=== PATIENT | female | born 1950 | race Caucasian/White ===

== ENCOUNTER 2020-09-29 12:19 | Outpatient (REF) | payer MEDICARE, SELFPAY ==
--- NOTE | 2020-09-29 | MM_ITS ---
EXAMINATION: MM SCREENING DIGITAL BREAST TOMOSYNTHESIS, BILATERAL CLINICAL INFORMATION: Screening. Asymptomatic. The lifetime risk of breast cancer based on the Tyrer-Cuzick Model is 2%. COMPARISON: Mammography: 08/02/2019, 08/01/2018, 07/27/2017 TECHNIQUE: Digital breast tomosynthesis is performed in both the craniocaudal and mediolateral oblique views along with computer-aided detection (CAD). Synthesized 2D images are generated from the tomosynthesis. FINDINGS: There are scattered areas of fibroglandular density (ACR BI-RADS breast composition Category b). There are no significant masses, abnormal calcifications, or other abnormalities. Parenchymal pattern is similar to prior studies. No significant changes. MM/MM tomosynthesis screening BI IMPRESSION: No mammographic evidence of malignancy. ASSESSMENT: BI-RADS 1: Negative RECOMMENDATION: Routine annual mammography screening. This patient's information was entered into a reminder system with a target due date for their next mammogram.
== END 2020-09-29 12:20 | disposition home or self-care (01) ==
LOC: HO.MAMMO 12:19
PROVIDERS: PCP Family Medicine; Visit Provider Family Medicine
DX: Z12.31 Encounter for screening mammogram for malignant neoplasm of breast (principal)
CPT/HCPCS: 77063; 77067

== ENCOUNTER 2021-09-24 12:42 | Outpatient (REF) | payer MEDICARE, SELFPAY ==
--- NOTE | ~2021-09-24 | MM_ITS ---
EXAMINATION: BONE DENSITOMETRY CLINICAL INDICATION: Menopause. COMPARISON: Baseline BD dated 10/26/2018. TECHNIQUE: Using a Hightower DXA System (software version: 13.1) manufactured by [employer], dual-energy x-ray absorptiometry was performed of the lumbar spine and left hip. The images are of good technical quality. Summary results are attached. FINDINGS: AP SPINE L1-L4: Current: BMD 1.116 g/cm2, Z-score 0.8, T-score -0.5, normal, 1.2% decrease from baseline (<5% change is not significant). Baseline: BMD 1.129 g/cm2. LEFT FEMUR, NECK: Current: BMD 0.878 g/cm2, Z-score 0.4, T-score -1.1, osteopenia. Baseline: BMD 0.862 g/cm2. LEFT FEMUR, TOTAL: Current: BMD 1.002 g/cm2, Z-score 1.2, T-score 0.0, normal, 4.5% increase from baseline (<5% change is not significant). Baseline: BMD 0.959 g/cm2. IDENTIFIED RISK FACTORS: Rheumatoid arthritis, menopause. HISTORY OF FRACTURE: None listed. MEDICATIONS: Calcium supplements or multivitamin, vitamin D. MM/XR DEXA axial skeleton IMPRESSION: 1. DIAGNOSIS: Osteopenia based on the lowest T-score value of -1.1 in the femoral neck applying World Health Organization criteria. 2. 10-YEAR FRACTURE RISK PREDICTION, FRAX: Major osteoporotic fracture (clinical spine, forearm, hip or shoulder) 6.7%. Hip fracture 0.9%. 3. Treatment Recommendations: NOF guidelines recommend consideration for treatment in postmenopausal women and men age 50 and older presenting with the following: -A hip or vertebral (clinical or morphometric) fracture. -T-score less than or equal to -2.5 at the femoral neck or spine after appropriate evaluation to exclude secondary causes. -Low bone mass at the hip or spine and a 10-year fracture probability by FRAX of greater than or equal to 3% for hip fracture or greater than or equal to 20% for major osteoporotic fracture based on the [place] adapted WHO algorithm. 4. Other Recommendations: All treatment decisions require clinical judgment and consideration of individual patient factors, including patient preferences, comorbidities, previous drug use, risk factors not captured in the FRAX model (e.g. frailty, falls, vitamin D deficiency, increased bone turnover, interval significant decline in bone density) and possible under or overestimation of fracture risk by FRAX. Additional medical evaluation for secondary cause of low bone mineral density may be appropriate. FUTURE SCAN RECOMMENDATION: People with diagnosed cases of osteoporosis or at high risk for fracture should have regular bone mineral density tests. For patients eligible for Medicare, routine testing is allowed once every 2 years. The testing frequency can be increased to one year for patients who have rapidly progressing disease, those who are receiving or discontinuing medical therapy to restore bone mass, or have additional risk factors.
== END 2021-09-24 12:43 | disposition home or self-care (01) ==
LOC: HO.MAMMO 12:42
PROVIDERS: PCP Internal Medicine; Visit Provider Internal Medicine
DX: Z13.820 Encounter for screening for osteoporosis (principal); M85.80 Other specified disorders of bone density and structure, unspecified site; Z78.0 Asymptomatic menopausal state; M05.9 Rheumatoid arthritis with rheumatoid factor, unspecified; Z79.899 Other long term (current) drug therapy
CPT/HCPCS: 77080

== ENCOUNTER 2021-09-30 12:50 | Outpatient (REF) | payer MEDICARE, SELFPAY ==
--- NOTE | ~2021-09-30 | MM_ITS ---
EXAMINATION: MM SCREENING DIGITAL BREAST TOMOSYNTHESIS, BILATERAL CLINICAL INFORMATION: Screening. Asymptomatic. The lifetime risk of breast cancer based on the Tyrer-Cuzick Model is 2.4%. COMPARISON: Mammography: September 29, 2020 and studies dating back to April 24, 2014 TECHNIQUE: Digital breast tomosynthesis is performed in both the craniocaudal and mediolateral oblique views along with computer-aided detection (CAD). Synthesized 2D images are generated from the tomosynthesis. FINDINGS: There are scattered areas of fibroglandular density (ACR BI-RADS breast composition Category b). There are no significant masses, abnormal calcifications, or other abnormalities. MM/MM tomosynthesis screening BI IMPRESSION: There are no significant changes from prior study. ASSESSMENT: BI-RADS 1: Negative RECOMMENDATION: Routine annual mammography screening. This patient's information was entered into a reminder system with a target due date for their next mammogram.
== END 2021-09-30 12:51 | disposition home or self-care (01) ==
LOC: HO.MAMMO 12:50
PROVIDERS: PCP Internal Medicine; Visit Provider Internal Medicine
DX: Z12.31 Encounter for screening mammogram for malignant neoplasm of breast (principal)
CPT/HCPCS: 77063; 77067

== ENCOUNTER 2022-10-06 12:30 | Outpatient (REF) | payer OTHER, SELFPAY ==
--- NOTE | ~2022-10-06 | MM_ITS ---
EXAMINATION: MM SCREENING DIGITAL BREAST TOMOSYNTHESIS, BILATERAL CLINICAL INFORMATION: Screening. Asymptomatic. The lifetime risk of breast cancer based on the Tyrer-Cuzick Model is 3%. COMPARISON: Mammography: September 30, 2021 and studies dating back to January 01, 2016 TECHNIQUE: Digital breast tomosynthesis is performed in both the craniocaudal and mediolateral oblique views along with computer-aided detection (CAD). Synthesized 2D images are generated from the tomosynthesis. FINDINGS: There are scattered areas of fibroglandular density (ACR BI-RADS breast composition Category b). There are no significant masses, abnormal calcifications, or other abnormalities. MM/MM tomosynthesis screening BI IMPRESSION: No significant changes from prior exam. ASSESSMENT: BI-RADS 1: Negative RECOMMENDATION: Routine annual mammography screening.
== END 2022-10-06 12:31 | disposition home or self-care (01) ==
LOC: HO.MAMMO 12:30
PROVIDERS: PCP Internal Medicine; Visit Provider Internal Medicine
DX: Z12.31 Encounter for screening mammogram for malignant neoplasm of breast (principal)
CPT/HCPCS: 77063; 77067

== ENCOUNTER 2023-10-10 10:32 | Outpatient (REF) | payer OTHER, SELFPAY | END 2023-10-10 10:33 | disposition home or self-care (01) | LOC: HO.MAMMO 10:32 | PROVIDERS: PCP Internal Medicine; Visit Provider Internal Medicine | DX: Z12.31 Encounter for screening mammogram for malignant neoplasm of breast (principal) | CPT/HCPCS: 77063; 77067 ==

== ENCOUNTER → 2023-10-10 10:45 | Outpatient (BNV) | payer OTHER, SELFPAY | PROVIDERS: PCP Internal Medicine; Visit Provider Radiology Diagnostic Radiology | DX: Z12.31 Encounter for screening mammogram for malignant neoplasm of breast (principal) | CPT/HCPCS: 77063; 77067 ==

== ENCOUNTER 2024-03-05 08:53 | Outpatient (REF) | payer OTHER, SELFPAY ==
[2024-03-05 15:06] LABS: Alanine Aminotransferase 11 U/L (0-31); Albumin Level 4.3 g/dL (3.5-5.0); Alkaline Phosphatase 71 U/L (39-117); Anion Gap 16 (12-20); Aspartate Amino Transferase 18 U/L (5-31); Bilirubin Total 0.6 mg/dL (0.0-1.0); Blood Urea Nitrogen 14 mg/dL (9-16); Carbon Dioxide 27 mmol/L (22-29); Chloride 103 mmol/L (96-108); Cholesterol 176 mg/dL (<200); Estimated Glomerular Filt Rate > 60; Glucose Random 86 mg/dL (60-115); HDL Cholesterol 72 mg/dL (>40); LDL Cholesterol Calculated 78 mg/dL (<100); Potassium 4.2 mmol/L (3.3-5.1); Sodium 142 mmol/L (135-145); Total Protein 8.3 g/dL (6.5-8.0); Triglycerides 131 mg/dL (<150)
== END 2024-03-05 08:54 | disposition home or self-care (01) ==
LOC: HO.CHCLDS 08:53
PROVIDERS: Visit Provider Internal Medicine
DX: I10 Essential (primary) hypertension (principal)
CPT/HCPCS: 36415; 80053; 80061

== ENCOUNTER 2024-10-14 12:03 | Outpatient (REF) | payer OTHER, SELFPAY | END 2024-10-14 12:04 | disposition home or self-care (01) | LOC: HO.MAMMO 12:03 | PROVIDERS: PCP Internal Medicine; Visit Provider Internal Medicine | DX: Z12.31 Encounter for screening mammogram for malignant neoplasm of breast (principal) | CPT/HCPCS: 77063; 77067 ==

== ENCOUNTER → 2024-10-14 12:15 | Outpatient (BNV) | payer OTHER, SELFPAY | PROVIDERS: PCP Internal Medicine; Visit Provider Internal Medicine | DX: Z12.31 Encounter for screening mammogram for malignant neoplasm of breast (principal) | CPT/HCPCS: 77063; 77067 ==

== ENCOUNTER 2025-05-27 10:44 | Outpatient (REF) | payer OTHER, SELFPAY ==
--- OUTSIDE RECORDS SUMMARY | 2025-05-27 11:52 | XMS_ITS | Encounter Summary ---
Author Organization [employer] Address [address] [facility] 7 [place] [address] Care Team Providers Care Head Of Operation And Logistics Name Role Phone Romel Winn MD Primary Care Prov ider Reason for Visit * Reason Comments Med Refill Encounter Details Date Type Department Care Team (Late st Contact Info) Description 03/02/2024 Refill [facility] MED & PEDS [address] [place], [place] [phone] Romel Winn MD [address] [place] [address] Social History Tobacco Use Types Packs/Day Years Used Date Smoking Tobacco: Never Assessed Depression Answer Date Recorded Patient Health Questionnaire-9 Score 0 03/04/2024 Patient Health Questionnaire-9 Score 0 03/04/2024 Last PHQ-9: Questionnaire Data Not on file 0 03/04/2024 Housing Stability Answer Date Recorded What is your housing situation today? I have zee ware 03/04/[address] you li ve. Do you have problems with any of the following? None of the above 03/04/2024 Food Insecurity Answer Date Recorded Within the past 12 months, y ou worried that your food would run out before you got money to buy more: Never True 03/04/2024 Within the past 12 months,th e food you bought just didn't last and you didn't have enough money to get more: Never True Transportation Answer Date Recorded In the past 12 months, has l ack of transportation kept you from medical appts, meetings, work or from getting things needed for daily living? No 03/04/2024 Utilities Answer Date Recorded In the past 12 months, has t he electric, gas, oil or water company threatened to shut off services in your home? No 03/04/2024 Depression Answer Date Recorded Patient Health Questionnaire-2 Score 0 03/04/2024 Comments Unknown Sex and Gender Information Value Date Recorded Sex Assigned at Female 08/15/2022 10:28 AM EDT Legal Sex Female 10:28 AM EDT Gender Identity Female 08/15/2022 10:28 AM EDT Sexual Orientation Choose not to disclose 2021 10:28 AM EDT documented as of this encounter Functional Status * Over the past 2 weeks, how often have you been bothered by any of the following problems? Question Answer Date of Assessment Author Patient Health Questionnaire-2 Score 0 02/14 3:12 PM Aliyah Sol MA * Over the past 2 weeks, how often have you been bothered by any of the following problems? Question Answer Date of Assessment Author Little interest or pleasure in doing things Not at all 03/04/2024 3:12 PM Aliyah Sol MA Feeling down, depressed, or hopeless Not at all 03/04/2024 3:12 PM Aliyah Sol MA Trouble falling or staying a sleep, or sleeping too much Not at all 03/04/2024 3:12 PM Aliyah Sol MA Feeling tired or having mayank le energy Not at all 03/04/2024 3:12 PM Aliyah Sol MA Poor appetite or overeating Not at all 03/04/2024 3: 12 PM Aliyah Sol MA Feeling bad about yourself - or that you are a failure or have let yourself or your family down Not at all 03/04/2024 3:12 PM Wendy Sol MA Trouble concentrating on thi ngs, such as reading the newspaper or watching television Not at all 03/04/2024 3:12 PM Aliyah Sol MA Moving or speaking so slowly that other people could have noticed? Or the opposite - being so fidgety or restless that you have been moving around a lot more than usual. Not at all 03/04/2024 3:12 PM Aliyah Sol MA Thoughts that you would be b demetrice off or hurting yourself in some way Not at all 03/04/2024 3:12 PM EDT Aliyah Dill MA Patient Health Questionnaire -9 Score 0 03/04/2024 3:12 PM EDT Aliyah Dill MA documented as of this encounter Plan of Treatment Not on file documented as of this encounter Visit Diagnoses Not on filedocumented in this encounter Care Teams Head Of Operation And Logistics Relationship Specialty Start Date End Date Romel Winn MD [address] [place] [id number] PCP - General Internal Medicine 03/15/20 documented as of this encounter
[2025-05-27 14:04] LABS: MANUAL DIFF FLAG NO
[2025-05-27 14:19] LABS: Hematocrit 42.4 % (37.0-47.0); Hemoglobin 13.5 g/dl (12.0-16.0); Imm Gran Abs Auto 0.04 X10*3/uL (0.00-0.03); Imm Gran Pct Auto 0.4 % (0.0-0.4); Lymphocytes Absolute Auto 2.6 X10*3/uL (1.2-4.9); Mean Corpuscular HGB Conc 31.8 g/dl (31.0-35.0); Mean Corpuscular Hemoglobin 29.0 pg (27.0-33.0); Mean Corpuscular Volume 91.2 fL (80.0-98.0); NRBC Abs Auto 0.000 X10*3/uL (0.0-0.012); NRBC Pct Auto 0.0 /100WBC (0.0-0.2); Platelet Count 290 X10*3/uL (160-400); Red Blood Count 4.65 X10*6/uL (4.20-5.50); White Blood Count 9.0 X10*3/uL (4.8-10.8)
[2025-05-27 14:45] LABS: Alanine Aminotransferase 14 U/L (0-31); Albumin Level 4.4 g/dL (3.5-5.0); Alkaline Phosphatase 75 U/L (39-117); Anion Gap 15 (12-20); Aspartate Amino Transferase 26 U/L (5-31); Blood Urea Nitrogen 21 mg/dL (9-16); Calcium 10.2 mg/dL (8.4-10.2); Carbon Dioxide 30 mmol/L (22-29); Chloride 102 mmol/L (96-108); Cholesterol 189 mg/dL (<200); Estimated Glomerular Filt Rate 54; HDL Cholesterol 71 mg/dL (>40); Potassium 3.9 mmol/L (3.3-5.1); Sodium 143 mmol/L (135-145); Total Protein 8.1 g/dL (6.5-8.0); Triglycerides 147 mg/dL (<150)
[2025-05-27 14:53] LABS: Hemoglobin A1C 133.6207 umol/L; Total Hemoglobin (HGBA1C) 3608.1160 umol/L
[2025-05-27 15:54] LABS: Free T4 (Free Thyroxine) 1.10 ng/dL (0.71-1.85)
== END 2025-05-27 10:45 | disposition home or self-care (01) ==
LOC: HO.CHCLDS 10:44
PROVIDERS: Visit Provider Internal Medicine
DX: I10 Essential (primary) hypertension (principal)
CPT/HCPCS: 36415; 80053; 80061; 83036; 84439; 84443; 85025

== ENCOUNTER 2025-08-08 11:21 | Outpatient (REF) | payer OTHER, SELFPAY ==
--- NOTE | ~2025-08-08 | MM_ITS ---
EXAMINATION: DXA BONE DENSITY AXIAL HISTORY: menopause TECHNIQUE: [employer] Dual energy absorptiometry (DEXA) of the lumbar spine, total left hip, and femoral neck was performed. COMPARISON: Comparison is made with the prior examination dated 09/24/2021. FINDINGS: The bone mineral density of the lumbar spine is 1.123 g/cm2, corresponding to a T-score of -0.5, and a Z-score of 1.0. This is indicative of normal bone mineral density. This represents a BMD change of 0.6% compared to the prior exam. This is not statistically significant. The bone mineral density of the left total hip is 0.909 g/cm2, corresponding to a T-score of -0.8, and a Z-score of 0.7. This is indicative of normal bone mineral density. This represents a BMD change of -9.3% compared to the prior exam. This is statistically significant. The bone mineral density of the left femoral neck is 0.914 g/cm2, corresponding to a T-score of -0.9, and a Z-score of 0.8. This is indicative of normal bone mineral density. This represents a BMD change of 4.1% compared to the prior exam. FRACTURE RISK: The FRAX index suggests a ten year probability of major osteoporotic fracture of 5.2%, and of hip fracture 0.7%. MM/XR DEXA axial skeleton IMPRESSION: Based on bone mineral density, and according to World Health Organization (WHO) criteria, the diagnosis is consistent with normal bone mineral density. Statistically, 68% of repeat scans fall within 1 SD (+/- 0.010 g/cm2 for AP spine L1-L4) and 1 SD (+/- 0.012 g/cm2 for femur total) FRAX is a trademark of the [employer], a World Health Organization (WHO) Collaborating Center. Electronically signed by: Chandra Farnsworth MD 08/08/2025 11:49 AM EDT
--- OUTSIDE RECORDS SUMMARY | 2025-08-08 13:46 | XMS_ITS | Encounter Summary ---
Author Organization [employer] Address [address] [facility] 7 [place] [address] Care Team Providers Care Butadiene Convertor Operator Name Role Phone Romel Winn MD Primary Care Prov ider Reason for Visit * Reason Onset Date Comments Nurse Triage 03/04/2024 Encounter Details Date Type Department Care Team ([facility] st Contact Info) Description 03/04/2024 Telephone [facility] CHC MED & PEDS [address] [place], [place] [phone] Romel Winn MD [address] [place] [address] Nurse Triage Social History Tobacco Use Types Packs/Day Years [...] Health Questionnaire-2 Score 0 02/14 3:12 PM [facility] Aliyah Dill MA * Over the past 2 weeks, how often have you been bothered by any of the following problems? Question Answer Date of Assessment Author Little interest or pleasure in doing things Not at all 03/04/2024 3:12 PM RAD[facility] Aliyah Dill MA Feeling down, depressed, or hopeless Not at all 03/04/2024 3:12 PM RADAMEST Aliyah Dill MA Trouble falling or staying asleep, or sleeping too much Not at all 03/04/2024 3:12 PM RAD[facility] Wendy Dill MA Feeling tired or having mayank le energy Not at all 03/04/2024 3:12 PM RADAMEST Aliyah Dill MA Poor appetite or overeating Not at all 03/04/2024 3: 12 PM RADAME[employer] Aliyah Dill MA Feeling bad about yourself - or that you are a failure or have let yourself or your family down Not at all 03/04/2024 3:12 PM EDT Aliyah Perdomo MA Trouble concentrating on thi ngs, such as reading the newspaper or watching television Not at all 03/04/2024 3:12 PM RADAMEST Aliyah Dill MA Moving or speaking so slowly that other people could have noticed? Or the opposite - being so fidgety or restless that you have been moving around a lot more than usual. Not at all 03/04/2024 3:12 PM EDT Aliyah Dill MA Thoughts that you would be b demetrice off or hurting yourself in some way Not at all 03/04/2024 3:12 PM EDT Aliyah Dill MA Patient Health Questionnaire -9 Score 0 03/04/2024 3:12 PM EDT Aliyah Dill MA documented as of this encounter Miscellaneous Notes * Telephone Encounter - [place] RN - 03/04/2024 10:50 AM EDT Call returned to Nilsa Watson to triage below. Reports having pain on joints due to arthritis. Per pt this has been ongoing 2-3 weeks. No swelling, redness, rash or bruising. Pt denies any difficulty with range of motion. Pt using OTC Tylenol with mild relief. Pt advised of disposition, agrees totelehealth with PCP. Reviewed home care advise, ER precautions and reasons to call back. Protocol Used: Arm Pain (Adult) Protocol-Based Disposition: See in Office or Video Visit within 3 Days Future Appointments Date Time Provider Department Center 03/04/2024 3:15 PM Romel Murcia MD [facility] 03/18/2024 8:45 AM Romel Murcia MD [facility] Video visit offered and caller accepted Positive Triage Question: * Moderate pain (e.g., interferes with normal activities) and present > 3 days * All higher-acuity triage questions were negative Care Advice Discussed: * Pain Medicines * Reasons To Call Back - Signs of infection occur (e.g., spreading redness, warmth, fever) - You become worse * Telephone Encounter - Nash Cueto - 03/04/2024 9:34 AM EDT Symptoms: Body Aches, Pain - Severe Outcome: Schedule an urgent appointment (within 1 hour) or talk to a nurse or provider soon Reason: Caller denied all higher acuity questions The caller accepted this outcome Please contact pt @ [phone] documented in this encounter Plan of Treatment Upcoming Encounters Date Type Department Care Team (Late st Contact Info) Description 09/01/2025 8:45 AM EST Office Visit [facility] CH[facility] MED & PEDS [address] [place] [address] Romel Winn MD [address] [place] [address] documented as of this encounter Visit Diagnoses Not on filedocumented in this encounter Additional Health Concerns Assessment Noted Time PHQ-9 Depression Total Score: 0 03/04/20 24 3:12 PM EDT documented as of this encounter Care Teams Butadiene Convertor Operator Relationship Specialty Start Date End Date Romel Winn MD [address] [place] [address] PCP - General Internal Medicine 03/15/20 documented as of this encounter
--- OUTSIDE RECORDS SUMMARY | 2025-08-08 13:46 | XMS_ITS | Encounter Summary ---
Author Organization [employer] Address [address] [place] [address] 7 [place] [address] Care Team Providers Care Commercial Stripper Name Role Phone Romel Winn MD Primary Care Prov ider Encounter Details Date Type Department Care Team (Late Contact Info) Description 01/30/2024 Orders Only [facility] MEDICINE [address] [place] [address] Provider, MD Emperatriz Social History Tobacco Use Types Packs/Day Years Used Date Smoking Tobacco: Never Assessed Comments Unknown Sex and Gender Information Value Date Recorded Sex Assigned at Female 08/15/2022 10:28 AM EDT Legal Sex Female 10:28 AM EDT Gender Identity Female 08/15/2022 10:28 AM EDT Sexual Orientation Choose not to disclose 2021 10:28 AM EDT documented as of this encounter Plan of Treatment Upcoming Encounters Date Type Department Care Team (Late st Contact Info) Description 09/01/2025 8:45 AM EST Office Visit [facility] CHC MED & PEDS [address] [place] [address] Romel Winn MD [address] [place] [address] documented as of this encounter Procedures Procedure Name Priority Date/Time Associated Diagnosis Comments HM COLONOSCOPY Routine 08/21/2015 11:25 AM EST documented in this encounter Results * Hm Colonoscopy (08/21/2015 11:25 AM EST) us Historical Provider HEALTH MAINTENANCE Final Result documented in this encounter Visit Diagnoses Not on filedocumented in this encounter Care Teams Commercial Stripper Relationship Specialty Start Date End Date De La FuenteRomel Cardenas MD [address] [place] [id number] PCP - General Internal Medicine 03/15/20 documented as of this encounter
--- OUTSIDE RECORDS SUMMARY | 2025-08-08 13:46 | XMS_ITS | Encounter Summary ---
Author Organization [employer] Address [address] [place] [address] [address] [place] [address] Care Team Providers Care Exotic Dancer Name Role Phone Romel Winn MD Primary Care Prov ider Encounter Details Date Type Department Care Team (Late st Contact Info) Description 08/22/2023 Orders Only [facility] MED & PEDS [address] [place] [address] aBrbara Kilgore LPN Social History Tobacco Use Types Packs/Day Years [...] Description 09/01/2025 8:45 AM EST Office Visit [facility] MED & PEDS [address] [place] [address] Romel Winn MD [address] [place] [address] documented as of this encounter Visit Diagnoses Not on filedocumented in this encounter Care Teams Exotic Dancer Relationship Specialty Start Date End Date Romel Winn MD [address] [place] [address] PCP - General Internal Medicine 03/15/20 documented as of this encounter
--- OUTSIDE RECORDS SUMMARY | 2025-08-08 13:46 | XMS_ITS | Encounter Summary ---
Author Organization [employer] Address [address] [facility] 7 [place] [address] Care Team Providers Care Dining Room Tables Set Up Attendant Name Role Phone Romel Winn MD Primary Care Prov ider Reason for Visit * Reason Comments Med Refill Encounter Details Date Type Department Care Team (Late st Contact Info) Description 03/02/2024 Refill [facility] CHC MED & PEDS [address] [place], [place] [phone] Romel Winn MD [address] [place] [address] Social History Tobacco Use Types Packs/Day Years [...] Description 09/01/2025 8:45 AM EST Office Visit [facility] MED & PEDS [address] [place] [address] Romel Winn MD [address] [place] [address] documented as of this encounter Visit Diagnoses Not on filedocumented in this encounter Care Teams Dining Room Tables Set Up Attendant Relationship Specialty Start Date End Date Romel Winn MD [address] [place] [address] PCP - General Internal Medicine 03/15/20 documented as of this encounter
--- OUTSIDE RECORDS SUMMARY | 2025-08-08 13:46 | XMS_ITS | Clinical Summary ---
Author Organization [email or web address] Address [address] [facility] [address] [place] [address] Care Team Providers Care Shredder Operator Name Role Phone Romel Winn MD Primary Care Prov ider Allergies No known active allergies Medications Diclofenac Sodium (Voltaren) 1 % gel Apply 2 g topically 3 times daily. 100 g 4 Active lisinopril-hydr oCHLOROthiazide 20-25 MG tablet TAKE 1 TABLET BY MOUTH EVERY DAY 90 tablet 1 4 Active cyclobenzaprine (Flexeril) 10 MG tabletIndicatio ns:Neck pain Take 1 tablet (10 mg) by mouth at bedtime for 10 days. 10 tablet 5 Active Diclofenac Sodium (Voltaren) 1 % gel Use topical BID 100 g 3 5 Active atorvastatin (Lipitor) 20 MG tablet TAKE 1 TABLET(20 MG) BY MOUTH DAILY 90 tablet 1 5 Active ibuprofen 800 MG tablet Take 1 tablet (800 mg) by mouth 2 times daily. 60 tablet 5 07/31/20 25 Active Problems Problem Noted Date Diagnosed Date Screening for colon cancer 03/18/2024 Assessment & Plan (03/18/2024 9:31 AM EDT): Will send cologuard risk vs benefits discussed Primary hypertension 03/18/2024 Assessment & Plan (05/23/2025 10:00 AM EDT): Controlled, keep low sodium diet and exercise as tolerated, keep bp log, follow up in 3 months Assessment & Plan (05/31/2024 10:36 PM EDT): Continue current medications, new labs will be ordered Assessment & Plan (03/18/2024 12:14 PM EDT): Slightly above target, reinforced low sodium diet and exercise as tolerated, keep lisinopril/hydrochlorothiazide, keep bp log target <140/90 Dyslipidemia 08/27/2018 Assessment & Plan (05/23/2025 10:01 AM EDT): New labs will be ordered for guidance of therapy, encouraged to keep a low cholesterol diet, eat more vegetables and fish Assessment & Plan (05/31/2024 10:36 PM EDT): New labs will be ordered for guidance Assessment & Plan (03/18/2024 9:21 AM EDT): Controlled with current therapy, continue diet/exercise recommendations, follow up in 6 months Encounters Date Type Department Care Team Description 07/02/2025 Refill [facility] [address] [place] [address] Romel Winn MD 07/01/2025 9:30 AM EDT Office Visit [facility] [address] [place] [address] Marisela Cazares MD Neck pain (Primary Dx); Primary hypertension 07/01/2025 Travel 06/30/2025 Telephone [facility] [address] [place] [address] Romel Winn MD Nurse Triage 05/27/2025 Orders Only [facility] [address] [place] [address] Romel Winn MD Primary hypertension (Primary Dx) 05/23/2025 9:45 AM EDT Office Visit [facility] [address] [place] [address] Romel Winn MD Menopause (Primary Dx); Dietary counseling; Exercise counseling; Primary hypertension; Dyslipidemia 05/23/2025 Travel from Last 3 Months Immunizations Immunization Administration Dates Next Due Influenza High-dose Quadriva lent Preservative Free 09/18/2023,08/12/2022,08/23/2021,09/13 Influenza injectable quadriv alent IIV4 with preservative 11/09/2017,07/24/2015 Influenza, High Dose Seasona l, Preservative Free 11/08/2019,07/06/2018 Influenza, Split (incl. raman fied surface antigen) 01/23/2014 Pneumococcal Conjugate PCV 13 11/13/2015 Pneumococcal Polysaccharide PPSV23 11/11/2016 RSV Bivalent 09/18/2023 Tdap 06/13/2016,01/23/2014 Zoster, Recombinant 10/21/2022,08/18/2022 Zoster, live 12/11/2017 Social History Tobacco Use Types Packs/Day Years Used Date Smoking Tobacco: Never Passive Smoke Exposure: Never Smokeless Tobacco: Never Tobacco Cessation:Counseling Given: Not Answered Alcohol Answer Date Recorded How often do you have a drink containing alcohol ? 1 05/23/2025 How many drinks containing a lcohol do you have on a typical day when you are drinking? 0 05/23/2025 How often do you have six or more drinks on one occasion? 0 05/23/2025 Depression Answer Date Recorded Patient Health Questionnaire-9 Score 4 05/23/2025 Patient Health Questionnaire-9 Score 4 05/23/2025 Last PHQ-9: Questionnaire Data Not on file 0 05/23/2025 Housing Stability Answer Date Recorded What is your housing situation today? I have zee ware 05/23/[address] you li ve. Do you have problems with any of the following? None of the above 05/23/2025 Food Insecurity Answer Date Recorded Within the past 12 months, y ou worried that your food would run out before you got money to buy more: Never True 2024 Within the past 12 months,th e food you bought just didn't last and you didn't have enough money to get more: Sometimes True 05/23/2025 Transportation Answer Date Recorded In the past 12 months, has l ack of transportation kept you from medical appts, meetings, work or from getting things needed for daily living? No 05/23/2025 Utilities Answer Date Recorded In the past 12 months, has t he electric, gas, oil or water company threatened to shut off services in your home? No 05/23/2025 Depression Answer Date Recorded Patient Health Questionnaire-2 Score 3 05/23/2025 Internet Access Answer Date Recorded Internet Access Q1 Yes 05/23/2025 Internet Access Q2 Not on file 05/23/2025 Comments No Sex and Gender Information Value Date Recorded Sex Assigned at Female 08/15/2022 10:28 AM EDT Legal Sex Female 10:28 AM EDT Gender Identity Female 08/15/2022 10:28 AM EDT Sexual Orientation Choose not to disclose 2021 10:28 AM EDT Last Filed Vital Signs Vital Sign Reading Time Taken Comments Blood Pressure 145/69 07/01/2025 9:29 AM EDT Pulse 70 07/01/2025 9:29 AM EDT Temperature 36.6 C (97.9 F) 07/01/2025 9:29 AM EDT Respiratory Rate 16 07/01/2025 9:29 AM EDT Oxygen Saturation 98% 05/23/2025 9:39 AM EDT Inhaled Oxygen Concentration - - Weight 68.5 kg (151 lb) 07/01/2025 9:29 AM EDT Height 160 cm (5' 3 ) 07/01/2025 9:29 AM EDT Body Mass Index 26.75 07/01/2025 9:29 AM EDT Plan of Treatment Upcoming Encounters Date Type Department Care Team ([facility] st Contact Info) Description 09/01/2025 8:45 AM EST Office Visit [facility] [address] [place] [address] Romel Winn MD [address] [place] [address] Health Maintenance Due Date Last Done Comments CT Colonography 1950 FIT 1950 Sigmoidoscopy 1950 Hepatitis C Screening 1968 FOBT 04/16/2025 04/16/2024 COVID-19 Vaccine ( season) 2025 03/30/2021, 03/02/2021 Influenza Vaccine (#1) 2025 , 09/18/2023, 08/12/2022, Additional history exists Colonoscopy 08/21/2025 08/21/2015 Alcohol/Substance Use Screening 05/23/2026 05/23/2025 Depression Screening 05/23/2026 05/23/2025, 05/23/20 25 SDOH Screening 05/23/2026 05/23/2025 DTaP/Tdap/Td Vaccines (3 - Td or Tdap) 06/13/2026 06/13/2016, 01/23/2014 Tobacco Screening 07/01/2026 07/01/2025 Colorectal Cancer Screening 04/21/2027 FIT DNA/Cologuard 04/21/2027 04/16/2024 Lipid Panel 05/27/2030 05/27/2025, 05/2 10/2023, 08/19/2022, Additional history exists Pneumococcal Vaccine: 50+ Years Completed 11/11/2016, 11/13/2015 Zoster Vaccines Completed 10/21/2022, 1112/2021, 12/11/2017 RSV Patients and Patients Aged 60 years or older Completed 09/18/2023 HIB Vaccines Aged Out No longer eligi ble based on patient's age to complete this topic HPV Vaccines Aged Out No longer eligi ble based on patient's age to complete this topic Hepatitis A Vaccines Aged Out No long er eligible based on patient's age to complete this topic Hepatitis B Vaccines Aged Out No long er eligible based on patient's age to complete this topic IPV Vaccines Aged Out No longer eligi ble based on patient's age to complete this topic Meningococcal B Vaccine Aged Out No l onger eligible based on patient's age to complete this topic Meningococcal Vaccine Aged Out No abigail rupali eligible based on patient's age to complete this topic RSV under 20 months Aged Out No longe r eligible based on patient's age to complete this topic Rotavirus Vaccines Aged Out No longer eligible based on patient's age to complete this topic Procedures Procedure Name Priority Date/Time Associated Diagnosis Comments BD DEXA AXIAL Routine 08/08/2025 11:24 AM EDT Menopause T4, FREE Routine 05/27/2025 9:57 AM EDT Primary hypertension HEMOGLOBIN A1C Routine 05/27/2025 9:57 AM EDT Primary hypertension TSH W/REFLEX TO FT4 Routine 05/27/2025 9 :57 AM EDT Primary hypertension LIPID PANEL, STANDARD Routine 05/27/2025 9:57 AM EDT Primary hypertension COMPREHENSIVE METABOLIC PANEL Routine 05/27/2025 9:57 AM EDT Primary hypertension CBC WITH AUTO DIFFERENTIAL Routine 05/27/2025 9:57 AM EDT Primary hypertension LAB COLOGUARD COLON CANCER SCREEN Routine 04/16/2024 7:15 AM EDT Screening for colon cancer HM COLONOSCOPY Routine 08/21/2015 11:25 AM EST from Last 3 Months or Most Recently Relevant to Health Maintenance Results * BD DEXA Axial (08/08/2025 11:24 AM EDT) Anatomical Region Laterality Modality Body Radiographic Gisela ging 08/08/2025 11:2 4 AM EDT Narrative 08/08/2025 11:52 AM EDT [facility] [address] [place] [address] Mammography Report Signed Patient: Nilsa Watson MR#: [id number] 91 : 1950 Acct:[id number] Age/Sex: 75 / F ADM Date: 08/08/25 Loc: HO.MAMMO Attending Dr: Romel Murcia MD Ordering Physician: Romel Winn MD Res ults: Date of Service: 08/08/25 Follow Up: Procedure(s): XR DEXA axial skeleton Accession Number(s): [id number] cc: Romel Winn MD Reason For Exam: menopause EXAMINATION: DXA BONE DENSITY AXIAL HISTORY: menopause TECHNIQUE: Zoomph Dual energy absorptiometry (DEXA) of the lumbar spine, total left hip, and femoral neck was performed. COMPARISON: Comparison is made with the prior examination dated 09/24/2021. FINDINGS: The bone mineral density of the lumbar spine is 1.123 g/cm2, corresponding to a T-score of -0.5, and a Z-score of 1.0. This is indicative of normal bone mineral density. This represents a BMD change of 0.6% compared to the prior exam. This is not statistically significant. The bone mineral density of the left total hip is 0.909 g/cm2, corresponding to a T-score of -0.8, and a Z-score of 0.7. This is indicative of normal bone mineral density. This represents a BMD change of -9.3% compared to the prior exam. This is statistically significant. The bone mineral density of the left femoral neck is 0.914 g/cm2, corresponding to a T-score of -0.9, and a Z-score of 0.8. This is indicative of normal bone mineral density. This represents a BMD change of 4.1% compared to the prior exam. FRACTURE RISK: The FRAX index suggests a ten year probability of major osteoporotic fracture of 5.2%, and of hip fracture 0.7%. MM/XR DEXA axial skeleton IMPRESSION: Based on bone mineral density, and according to World Health Organization (WHO) criteria, the diagnosis is consistent with normal bone mineral density. Statistically, 68% of repeat scans fall within 1 SD (+/- 0.010 g/cm2 for AP spine L1-L4) and 1 SD (+/- 0.012 g/cm2 for femur total) FRAX is a trademark of the [employer]'s [place] for Metabolic Bone Disease, a World Health Organization (WHO) Collaborating Center. Electronically signed by: Chandra Farnsworth MD 08/08/2025 11:49 AM EDT RP Dictated By: Chandra Farnsworth MD Signed By: <Electronically signed by Chandra Farnsworth MD in OV> 08/08/25 1149 DD/ 1124 TD/TT: 08/08/25 1140 World Ge[employer] Teacher: Procedure Note Donotuseinterpreter, Image - 08/08/2025 [facility] [address] [place] [address] [place] [address] Mammography Report Signed Patient: Abdon Watson#: [id number] 91 : 1950Acct:[id number] Age/Sex: 75 / FADM Date: 08/08/25 Loc: HO.MAMMO Attending Dr: Romel Murcia MD Ordering Physician: Romel Winn ults: Date of Service: 08/08/25Follow Up: Procedure(s): XR DEXA axial skeleton Accession Number(s): [id number] cc: Romel Winn MD Reason For Exam: menopause EXAMINATION: DXA BONE DENSITY AXIAL HISTORY: menopause TECHNIQUE: Zoomph Dual energy absorptiometry (DEXA) of the lumbar spine, total left hip, and femoral neck was performed. COMPARISON: Comparison is made with the prior examination dated 09/24/2021. FINDINGS: The bone mineral density of the lumbar spine is 1.123 g/cm2, corresponding to a T-score of -0.5, and a Z-score of 1.0. This is indicative of normal bone mineral density. This represents a BMD change of 0.6% compared to the prior exam. This is not statistically significant. The bone mineral density of the left total hip is 0.909 g/cm2, corresponding to a T-score of -0.8, and a Z-score of 0.7. This is indicative of normal bone mineral density. This represents a BMD change of -9.3% compared to the prior exam. This is statistically significant. The bone mineral density of the left femoral neck is 0.914 g/cm2, corresponding to a T-score of -0.9, and a Z-score of 0.8. This is indicative of normal bone mineral density. This represents a BMD change of 4.1% compared to the prior exam. FRACTURE RISK: The FRAX index suggests a ten year probability of major osteoporotic fracture of 5.2%, and of hip fracture 0.7%. MM/XR DEXA axial skeleton IMPRESSION: Based on bone mineral density, and according to World Health Organization (WHO) criteria, the diagnosis is consistent with normal bone mineral density. Statistically, 68% of repeat scans fall within 1 SD (+/- 0.010 g/cm2 for AP spine L1-L4) and 1 SD (+/- 0.012 g/cm2 for femur total) FRAX is a trademark of the [employer] [place] for Metabolic Bone Disease, a World Health Organization (WHO) Collaborating Center. Electronically signed by: Chandra Farnsworth MD 08/08/2025 11:49 AM EDT RP Dictated By: Chandra Farnsworth MD Signed By: <Electronically signed by Chandra Farnsworth MD in OV> 08/08/25 1149 DD/ 1124 TD/TT: 08/08/25 1140 World Ge[employer] Teacher: Romel Murcia MD IMG DXA PROCEDURES Final Result * (ABNORMAL) TSH W/Reflex to FT4 (05/27/2025 9:57 AM EDT) Pathologist [facility] TSH reflex Free T4 0.28(L) 0.32 - 4.0 uIU/mL [facility] Blood Venous blood specimen / Unknown 05/27/2025 9:57 AM EDT 05/27/2025 2:01 PM EDT Romel Murcia MD LAB BLOOD ORDERABL ES Final Result [facility] [address] [place] [address] [phone] * (ABNORMAL) CBC auto differential (05/27/2025 9:57 AM EDT) Pathologist [facility] White Blood Count 9.0 4.8 - 10.8 X10*3/uL [facility] Red Blood Count 4.65 4.20 - 5.50 X10*6/uL [facility] Hemoglobin 13.5 12.0 - 16.0 g/dl [facility] Hematocrit 42.4 37.0 - 47.0 % [facility] Mean Corpuscular Volume 91.2 80.0 - 98.0 fL [facility] Mean Corpuscular Hemoglobin 29.0 27.0 - 33.0 pg [facility] Mean Corpuscular HGB Conc 31.8 31.0 - 35.0 g/dl [facility] Red Cell Distribution Width 13.1 11.0 - 16.0 % [facility] Platelet Count 290 160 - 400 X10*3/uL [facility] Mean Platelet Volume 10.6 9.4 - 12.3 fL [facility] Neutrophils Percent Auto 60.6 45 - 73 % [facility] Imm Gran Pct Auto 0.4 0.0 - 0.4 % [facility] Lymphocytes Percent Auto 28.7 20 - 40 % [facility] Monocytes Percent Auto 9.0 2 - 11 % [facility] Eosinophils Percent Auto 0.9 0 - 4 % [facility] Basophils Percent Auto 0.4 0 - 2 % [facility] NRBC Pct Auto 0.0 0.0 - 0.2 /100WBC [facility] Neutrophils Absolute Auto 5.5 2.0 - 8.3 x10*3/uL [facility] Imm Gran Abs Auto 0.04(H) 0.00 - 0.03 X10*3/uL [facility] Lymphocytes Absolute Auto 2.6 1.2 - 4.9 X10*3/uL [facility] Monocytes Absolute Auto 0.8 0.1 - 1.2 X10*3/uL [facility] Eosinophils Absolute Auto 0.1 0.0 - 0.4 X10*3/uL [facility] Basophils Absolute Auto 0.0 0.0 - 0.2 X10*3/uL [facility] NRBC Abs Auto 0.000 0.0 - 0.012 X10*3/uL [facility] Blood Venous blood specimen / Unknown 05/27/2025 9:57 AM EDT 05/27/2025 2:01 PM EDT us Romel Murcia MD LAB BLOOD ORDERABL ES Final Result Performing Organization Address [facility]/ZIP Co de Phone Number [facility] [address] [place] [phone] * T4, Free (05/27/2025 9:57 AM EDT) Free T4 (Free Thyroxine) 1.10 0.71 - 1.85 ng/dL [facility] 05/27/2025 9:57 AM EDT 05/27/2025 2:01 PM EDT Romel Murcia MD LAB BLOOD ORDERABL ES Final Result Performing Organization Address [facility] Phone Number [facility] [address] [place] [phone] * Hemoglobin A1c (05/27/2025 9:57 AM EDT) Hemoglobin A1c 5.5 <6.0 % [facility] Comment:Hemoglobin A1C Refer ence Range Adults: 4.8 - 6.0 % Non diabetic: < 6.0 % Goal: < 7.0 %Additional Action Suggested: > 8.0 %Note: Hemoglobin A1c results are invalid for patients with abnormal amounts of HbF. Blood transfusions may impact the HbA1c concentration in the patient sample. Estimated Average Glucose 111 mg/dL [facility] Comment:eAG = Estimated ave rage glucose which is %A1C expressed asaverage glucose, using the formula of the P0Y-DkgdbqiUomosxu Glucose study (ADAG), Diabetes Care, Vol.31,#8,2007 Blood Venous blood specimen / Unknown 05/27/2025 9:57 AM EDT 05/27/2025 2:01 PM EDT Romel Murcia MD LAB BLOOD ORDERABL ES Final Result Performing Organization Address [facility] Co de Phone Number [facility] [address] [place] [phone] * Lipid Panel, Standard (05/27/2025 9:57 AM EDT) Triglycerides 147 <150 mg/dL [facility] Comment:Desirable Triglyceri de: less than 150 mg/dLBorderline High Triglyceride 150-199 mg/dLHigh Triglyceride: 200-499 mg/dLVery High Triglyceride: greater than or equal to 5OO mg/dL Cholesterol 189 <200 mg/dL [facility] Comment:Desirable Cholestero l: less than 200 mg/dLBorderline High Cholesterol: 200-239 mg/dLHigh Cholesterol: greater than 239 mg/dL LDL Cholesterol Calculated 89 <100 mg/dL [facility] Comment:Desirable LDL: less than 100 mg/dLNear Optimal/Above Optimal LDL: 110- 129 mg/dLBorderline High LDL: 130-159 mg/dLHigh LDL: 160-189 mg/dLVery High LDL: greater than or equal to 190 mg/dL HDL Cholesterol 71 >40 mg/dL [facility] Comment:Desirable HDL: great er than 40 mg/dL Note: This HDL assay may give artificially low results in patients with liver disease. Blood Venous blood specimen / Unknown 05/27/2025 9:57 AM EDT 05/27/2025 2:01 PM EDT us Romel Murcia MD LAB BLOOD ORDERABL ES Final Result [facility] [address] [place] [phone] * (ABNORMAL) Comprehensive Metabolic Panel (05/27/2025 9:57 AM EDT) Sodium 143 135 - 145 mmol/L [facility] Potassium 3.9 3.3 - 5.1 mmol/L [facility] Chloride 102 96 - 108 mmol/L [facility] Carbon Dioxide 30(H) 22 - 29 mmol/L [facility] Anion Gap 15 12 - 20 [facility] Urea Nitrogen (BUN) 21(H) 9 - 16 mg/dL [facility] Creatinine, Serum 1.00 0.5 - 1.4 mg/dL [facility] Estimated Glomerular Filt Rate 54 [facility] Comment:Chronic Kidney Disea se: Estimated GFR < 60 mL/min/1.38x6Hcmfpk Kidney Disease: Estimated GFR < 15 mL/min/1.73m2 Glucose 87 60 - 115 mg/dL [facility] Calcium 10.2 8.4 - 10.2 mg/dL [facility] Bilirubin, Total 0.9 0.0 - 1.0 mg/dL [facility] Aspartate Amino Transferase 26 5 - 31 U/L [facility] Alanine Aminotransferase 14 0 - 31 U/L [facility] Total Protein 8.1(H) 6.5 - 8.0 g/dL [facility] Albumin Level 4.4 3.5 - 5.0 g/dL [facility] Alkaline Phosphatase 75 39 - 117 U/L [facility] Blood Venous blood specimen / Unknown 05/27/2025 9:57 AM EDT 05/27/2025 2:01 PM EDT Romel Murcia MD LAB BLOOD ORDERABL ES Final Result [facility] [address] [place] [phone] * Cologuard?? colon cancer screening (04/16/2024 7:15 AM EDT) Cologuard Result Negative Negative 04/22/20 9:38 AM EDT [employer] (CLIA #:[id number]) Comment: NEGATIVE TEST RESULT. A negative Cologuard result indicates a low likelihood that a colorectal cancer (CRC) or advanced adenoma (adenomatous polyps with more advanced pre-malignant features) is present. The chance that a person with a negative Cologuard test has a colorectal cancer is less than 1 in 1500 (negative predictive value >99.9%) or has an advanced adenoma is less than 5.3% (negative predictive value 94.7%). These data are based on a prospective cross-sectional study of 10,000 individuals at average risk for colorectal cancer who were screened with both Cologuard and colonoscopy. (Heavenly Arguello al, N Engl J Med 2014;370(14):8245-9809) The normal value (reference range) for this assay is negative. COLOGUARD RE-SCREENING RECOMMENDATION: Periodic colorectal cancer screening is an important part of preventive healthcare for asymptomatic individuals at average risk for colorectal cancer. Following a negative Cologuard result, the [place] Cancer Society and U.S. Multi-Society Task Force screening guidelines recommend a Cologuard re-screening interval of 3 years. References: [employer] Cancer Society Guideline for Colorectal Cancer Screening: https://www.cancer.org/cancer/lqmpd-wqaanj-ddtpxu/qgcojpegp-ypaaanlvc-vvtcrxc/ac s-rec ommendations.html.; Joe DK, María Elena BERG, Nelson LiK, Colorectal Cancer Screening: Recommendations for Physicians and Patients from the U.S. Multi-Society Task Force on Colorectal Cancer Screening , Am J Gastroenterology 2017; 112:2571-3115. TEST DESCRIPTION: Composite algorithmic analysis of stool DNA-biomarkers with hemoglobin immunoassay. Quantitative values of individual biomarkers are not reportable and are not associated with individual biomarker result reference ranges. Cologuard is intended for colorectal cancer screening of adults of either sex, 45 years or older, who are at average-risk for colorectal cancer (CRC). Cologuard has been approved for use by the U.S. FDA. The performance of Cologuard was established in a cross sectional study of average-risk adults aged 50-84. Cologuard performance in patients ages 45 to 49 years was estimated by sub-group analysis of near-age groups. Colonoscopies performed for a positive result may find as the most clinically significant lesion: colorectal cancer [4.0%], advanced adenoma (including sessile serrated polyps greater than or equal to 1cm diameter) [20%] or non- advanced adenoma [31%]; or no colorectal neoplasia [45%]. These estimates are derived from a prospective cross-sectional screening study of 10,000 individuals at average risk for colorectal cancer who were screened with both Cologuard and colonoscopy. (Heavenly Moore, N Engl J Med 2014;370(14):3324-3140.) Cologuard may produce a false negative or false positive result (no colorectal cancer or precancerous polyp present at colonoscopy follow up). A negative Cologuard test result does not guarantee the absence of CRC or advanced adenoma (pre-cancer). The current Cologuard screening interval is every 3 years. ([employer] Cancer Society and U.S. Multi-Society Task Force). Cologuard performance data in a 10,000 patient pivotal study using colonoscopy as the reference method can be accessed at the following location: www.Chemclin/results. Additional description of the Cologuard test process, warnings and precautions can be found at www.cologuard.com. Stool specimen (specimen) Rectal contents / Unknown 04/16/2024 7:15 AM EDT 04/17/2024 2:35 PM EDT Romel Murcia MD LAB MOLECULAR DIAG NOSTICS ORDERABLES Final Result [employer] [facility] (CLIA #:[id number]) [place] [address], * Colonoscopy (08/21/2015 11:25 AM EST) [employer] Provider HEALTH MAINTENANCE Final Result from Last 3 Months or Most Recently Relevant to Health Maintenance Insurance [facility] RETIREMENT OPTIONS (HMO D-SNP) [place] [id number] Care Teams Shredder Operator Relationship Specialty Start Date End Date De La FuenteRomel Cardenas MD [address] [place] [id number] PCP - General Internal Medicine 03/15/20
--- OUTSIDE RECORDS SUMMARY | 2025-08-08 13:46 | XMS_ITS | Encounter Summary ---
Author Organization [email or web address] Address [address] [place] [address] [address] [place] [address] Care Team Providers Care Muffle Operator Name Role Phone Romel Winn MD Primary Care Prov ider Encounter Details Date Type Department Care Team (Late st Contact Info) Description 02/27/2023 Orders Only [facility] MED & PEDS [address] [place] [address] Lauren Hill LPN Social History Tobacco Use Types Packs/Day [...] Description 09/01/2025 8:45 AM EST Office Visit [facility] [address] [place] [address] Romel Winn MD [address] [place] [address] documented as of this encounter Visit Diagnoses Not on filedocumented in this encounter Care Teams Muffle Operator Relationship Specialty Start Date End Date Romel Winn MD [address] [place] [address] PCP - General Internal Medicine 03/15/20 documented as of this encounter
--- OUTSIDE RECORDS SUMMARY | 2025-08-08 13:46 | XMS_ITS | Encounter Summary ---
Author Organization [employer] Address [address] [place] [address] [facility] [place] [address] Care Team Providers Care Clock Mechanic Name Role Phone Romel Winn MD Primary Care Prov ider Reason for Visit * Reason Comments Med Refill Encounter Details Date Type Department Care Team ([facility] Contact Info) Description 08/22/2023 Refill [facility] MED & [facility]S [address] [place] [address] Romel Winn MD [address] [place], [place] [id number] Social History Tobacco Use Types Packs/Day Years [...] Upcoming Encounters Date Type Department Care Team ([facility] Contact Info) Description 09/01/2025 8:45 AM EST Office Visit [facility] [address] [place] [address] Romel Winn MD [address] [place] [address] documented as of this encounter Visit Diagnoses Not on filedocumented in this encounter Care Teams Clock Mechanic Relationship Specialty Start Date End Date Romel Winn MD [address] [place] [address] PCP - General Internal Medicine 03/15/20 documented as of this encounter
== END 2025-08-08 11:22 | disposition home or self-care (01) ==
LOC: HO.MAMMO 11:21
PROVIDERS: PCP Internal Medicine; Visit Provider Internal Medicine
DX: Z13.820 Encounter for screening for osteoporosis (principal); Z78.0 Asymptomatic menopausal state
CPT/HCPCS: 77080

== ENCOUNTER → 2025-08-08 11:30 | Outpatient (BNV) | payer OTHER, SELFPAY | PROVIDERS: PCP Internal Medicine; Visit Provider Radiology Diagnostic Radiology | DX: E28.39 Other primary ovarian failure (principal) | CPT/HCPCS: 77080 ==

== ENCOUNTER 2025-09-02 09:06 | Outpatient (REF) | payer OTHER, SELFPAY ==
--- NOTE | ~2025-09-02 | XR_ITS ---
EXAMINATION: XR SHOULDER, RIGHT CLINICAL INFORMATION: right shoulder pain COMPARISON: None available. TECHNIQUE: AP external rotation, Grashey, scapular Y, and axillary views of the right shoulder. FINDINGS: AC joint is narrowed with marginal osteophytes. There is no AC joint separation. Humeral joint demonstrates no dislocation. There is amorphous density near the central humeral head that could represent chondrocalcinosis. There are small marginal osteophytes involving humeral head and glenoid. Small faint calcific density is visible adjacent to greater tuberosity. On the axillary view, there is faint linear calcific density extending medially from the lesser trochanter. XR/XR shoulder RT min 2V IMPRESSION: Suspected subscapularis calcific tendinitis. Possible minimal calcific tendinitis involving infraspinatus, or possibly supraspinatus tendon at the footprint. 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 Moderate degenerative changes are evident in the AC joint. Electronically signed by: Shantanu Mustafa MD 09/02/2025 09:54 AM ZEB
== END 2025-09-02 09:07 | disposition home or self-care (01) ==
LOC: HO.XRAY 09:06
PROVIDERS: PCP Internal Medicine; Visit Provider Internal Medicine
DX: G89.29 Other chronic pain (principal); M25.511 Pain in right shoulder
CPT/HCPCS: 73030

== ENCOUNTER → 2025-09-02 09:11 | Outpatient (BNV) | payer OTHER, SELFPAY | PROVIDERS: PCP Internal Medicine; Visit Provider Radiology Diagnostic Radiology | DX: M19.011 Primary osteoarthritis, right shoulder (principal) | CPT/HCPCS: 73030 ==